=== PATIENT | male | born 1960 | race Caucasian/White ===

== ENCOUNTER 2018-10-06 11:09 | Emergency (ER) | payer MEDICAID, OTHER ==
--- NOTE | 2018-10-06 11:29 | EDPHY ---
H & P Time Seen by Provider: 10/06/18 11:16 HPI/ROS: CHIEF COMPLAINT: Sharp left-sided chest pain HISTORY OF PRESENT ILLNESS: Patient has a history of pulmonary embolism and DVT and is currently on Pradaxa. He does not have diabetes or hypertension or hypercholesterolemia, no previous history of coronary disease. Today it 9:30 a.m. He was watching tennis, the [place] open when he noticed a pinprick sensation on the left side of his chest below his clavicle which was noticeable on inspiration only. He presents for evaluation concerned about the possibility of cardiac disease. Does not radiate, not associated with nausea or diaphoresis. Not exertional but it is pleuritic. No recent injury or trauma. No fever or chills. No cough or hemoptysis. No radiation. REVIEW OF SYSTEMS: Eye: no change in vision ENT: no sore throat Cardiac: He has been having some palpitations and feeling his heart go flip flop for about 1 year and has the Holter monitor scheduled through [facility] this afternoon Pulmonary: no cough or SOB Abdomen: no vomiting, diarrhea, abdominal pain Musculoskeletal: Chronic right calf swelling after previous DVT Skin: no rash Neuro: no headache Constitutional: no fever : no urinary symptoms A comprehensive 10 point review of systems is otherwise negative aside from elements mentioned in the history of present illness. PAST MEDICAL HISTORY: Includes femur fracture, DVT, renal stones, PE Family history: 3/4 siblings anticoagulated for recurrent venous thromboembolism. Social history: Primary care doctor Nino at [facility] General Appearance: Alert and conversant, cooperative. Eyes: No scleral icterus. ENT, Mouth: Normal mucous membranes. Respiratory: Normal respiratory effort, breath sounds equal, lungs are clear to auscultation. No crepitus. No wheezing. Cardiovascular: Regular rate and rhythm. Gastrointestinal: Abdomen is soft and non tender. Neurological: Alert, face symmetric, normal motor and sensory in extremities. Skin: Warm and dry, no rashes. Musculoskeletal: Right calf chronically more swollen than the left unchanged from usual. Psychiatric: Not agitated. Emergency Department course/MDM: Low suspicion for PE given that he is on Pradaxa and has not missed any recent doses, D-dimer sent. Patient is relatively low risk for ACS given atypical symptoms with no known risk factors and no ST changes on EKG. Plan for troponin, EKG, chest x-ray, D-dimer. 1250: Results discussed. Patient has a HEART score of 1 for age. The shared decision-making instrument was personally reviewed with the patient by myself, including the risk of MACE. Patient states understanding and agreement with the chosen disposition. I think ACS myocardial infarction is unlikely. 0 points for history. Much more likely to be muscular or inflammatory. He did have an episode of narrow complex tachycardia on the monitor in the emergency department. I advised him to continue with his Holter monitor [place] and to give him the printout of the strip to his cardiology clinic. I told him I could not give him a definitive diagnosis just based on the strip today which I had reviewed. However I think that malignant dysrhythmia is unlikely. Smoking Status: Never smoked Constitutional: Initial Vital Signs Temperature (C) 36.4 C 10/06/18 11:10 Heart Rate 88 10/06/18 11:10 Respiratory Rate 17 10/06/18 11:10 Blood Pressure 145/95 H 10/06/18 11:10 O2 Sat (%) 100 10/06/18 11:10 O2 Delivery Mode Room Air Allergies/Adverse Reactions: No Known Allergies Allergy (Verified 10/06/18 11:09) Home Medications: Medication Instructions Recorded Pradaxa 10/06/18 Medical Decision Making - Diagnostics EKG Interpretation: 12-lead EKG interpreted by me; official reading is in computer system. My interpretation is sinus rhythm with APC rate 78 no ischemic changes. Imaging Results: Imaging Impressions Chest X-Ray 10/06/18 11:47 Impression: 1. Mild bronchitis. 2. No focal pneumonia. 3. No pneumothorax. Imaging: I viewed and interpreted images myself Differential Diagnosis: Differential diagnosis considered for chest pain including but not limited to myocardial ischemia, aortic dissection, pericarditis, pulmonary embolus, chest wall pain, pleural inflammation and pulmonary infectious causes. - Data Points Laboratory Results: Laboratory Results 10/06/18 11:20 10/06/18 11:20 10/06/18 10/06/18 10/06/18 11:28 11:20 11:20 WBC RBC Hgb Hct MCV MCH MCHC RDW Plt Count MPV Neut % (Auto) Lymph % (Auto) [place] % (Auto) Eos % (Auto) Baso % (Auto) Nucleat RBC Rel Count Absolute Neuts (auto) Absolute Lymphs (auto) Absolute Monos (auto) Absolute Eos (auto) Absolute Basos (auto) Absolute Nucleated RBC Immature Gran % Immature Gran # D-Dimer < 0.27 ug/mLFEU ug/mLFEU (0.00-0.50) Sodium 141 mEq/L mEq/L (135-145) Potassium 4.4 mEq/L mEq/L (3.5-5.2) Chloride 110 mEq/L mEq/L (97-110) Carbon Dioxide 24 mEq/l mEq/l (22-31) Anion Gap 7 mEq/L mEq/L (6-14) BUN 15 mg/dL mg/dL (7-23) Creatinine 1.0 mg/dL mg/dL (0.7-1.3) Estimated GFR > 60 Glucose 82 mg/dL mg/dL (70-100) Calcium 9.2 mg/dL mg/dL (8.5-10.4) POC Troponin I 0.00 ng/mL ng/mL (0.00-0.08) 10/06/18 11:20 WBC 4.50 10^3/uL 10^3/uL (3.80-9.50) RBC 5.16 10^6/uL 10^6/uL (4.40-6.38) Hgb 17.2 g/dL g/dL (13.7-17.5) Hct 47.6 % % (40.0-51.0) MCV 92.2 fL fL (81.5-99.8) MCH 33.3 pg pg (27.9-34.1) MCHC 36.1 g/dL g/dL (32.4-36.7) RDW 11.7 % % (11.5-15.2) Plt Count 197 10^3/uL 10^3/uL (150-400) MPV 9.9 fL fL (8.7-11.7) Neut % (Auto) 46.4 % % (39.3-74.2) Lymph % (Auto) 33.8 % % (15.0-45.0) [place] % (Auto) 7.6 % % (4.5-13.0) Eos % (Auto) 11.1 % H % (0.6-7.6) Baso % (Auto) 0.9 % % (0.3-1.7) Nucleat RBC Rel Count 0.0 % % (0.0-0.2) Absolute Neuts (auto) 2.09 10^3/uL 10^3/uL (1.70-6.50) Absolute Lymphs (auto) 1.52 10^3/uL 10^3/uL (1.00-3.00) Absolute Monos (auto) 0.34 10^3/uL 10^3/uL (0.30-0.80) Absolute Eos (auto) 0.50 10^3/uL H 10^3/uL (0.03-0.40) Absolute Basos (auto) 0.04 10^3/uL 10^3/uL (0.02-0.10) Absolute Nucleated RBC 0.00 10^3/uL 10^3/uL (0-0.01) Immature Gran % 0.2 % % (0.0-1.1) Immature Gran # 0.01 10^3/uL 10^3/uL (0.00-0.10) D-Dimer Sodium Potassium Chloride Carbon Dioxide Anion Gap BUN Creatinine Estimated GFR Glucose Calcium POC Troponin I Point of Care Test Results: Chemistry 10/06/18 11:28 POC Troponin I 0.00 ng/mL ng/mL (0.00-0.08) Departure - Departure Disposition: Home, Routine, Self-Care Clinical Impression: Chest pain Qualifiers: Chest pain type: unspecified Qualified Code(s): R07.9 - Chest pain, unspecified Condition: Good Instructions: Chest Pain (ED) Referrals: TANIYA DOWELL [Other] - As per Instructions
--- NOTE | 2018-10-06 11:55 | CPEKG ---
Test Reason : OPEN Blood Pressure : / mmHG Vent. Rate : 078 BPM Atrial Rate : 078 BPM P-R Int : 157 ms QRS Dur : 087 ms QT Int : 383 ms P-R-T Axes : 069 051 061 degrees QTc Int : 437 ms Sinus rhythm Atrial premature complex Confirmed by Augusto Diaz ([id number]) on 10/06/2018 11:55:19 AM Referred By: Confirmed By:Augusto Diaz
[2018-10-06 11:57] LABS: PLATELET COUNT 197 10^3/uL (150-400)
[2018-10-06 13:04] VITALS: BP 97/79
== END 2018-10-06 13:04 | disposition home or self-care (01) ==
DX: J40 Bronchitis, not specified as acute or chronic (principal)
CPT/HCPCS: 84484-ER